=== PATIENT | male | born 1960 | race Caucasian/White ===

== ENCOUNTER 2017-07-29 13:45 | Emergency (ER) | payer MEDICARE ==
[~2017-07-29] VITALS: Ht 165.1 cm; Wt 60.0 kg
[2017-07-29] MEDS ORDERED: IPRAAER INH (14:28)
--- NOTE | 2017-07-29 14:28 | PD ---
HPI Chief Complaint: Medication Refill Request Time Seen by Provider: 14:11 Travel History International Travel<30 days: No Contact w/Intl Traveler<30days: No Traveled to known affect area: No History of Present Illness HPI 49-year-old male presents to emergency department requesting refill of his Combivent. States that he is from [place] and is having trouble taking this medication. Patient states that he is unable to afford his medication at this time. Patient also says he takes albuterol at home. He has no other complaints today. PFSH Past Medical History Respiratory: Yes Social History Tobacco Use: Yes Allergies-Medications Reported Meds & Prescriptions Reported Meds & Active Scripts Active Combivent Respimat Inh (Ipratropium-Albuterol Inh) 20-100 Snf/Act Aero 1 Puff INH QID Review of Systems Except as stated in HPI: all other systems reviewed are Neg Physical Exam Narrative GENERAL: Well-developed well-nourished in no apparent distress SKIN: Focused skin assessment warm/dry. HEAD: Atraumatic. Normocephalic. EYES: Pupils equal and round. No scleral icterus. No injection or drainage. ENT: No nasal bleeding or discharge. Mucous membranes pink and moist. NECK: Trachea midline. No JVD. NEUROLOGICAL: Awake and alert. No obvious cranial nerve deficits. Motor grossly within normal limits. Normal speech. PSYCHIATRIC: Appropriate mood and affect; insight and judgment normal. Data Data Orders Orders Ed Discharge Order (07/29/17 14:34) MDM Medical Decision Making Medical Screen Exam Complete: Yes Emergency Medical Condition: Yes Differential Diagnosis Medication refill versus COPD versus asthma Narrative Course 32-year-old male presents to emergency department complaining of cough cold symptoms for approximately 3 weeks. States that he has had a productive cough with green sputum, fever of 103-107 broken with Mucinex, sore throat. He developed low back pain for a one-week ago that is worse with coughing. Patient denies abdominal pain, chest pain, urinary symptoms. Vital signs stable Physical exam unremarkable During the interview patient stated that he was unable to afford his Combivent but still requests this prescription. Patient does have albuterol as well and will use this if he is unable to obtain as Combivent. Patient is in no apparent distress and only requests medication refill. Patient will be discharged home with Combivent. He understands and is follow-up with his primary care physician. Diagnosis Primary Impression: Medication refill Referrals: Primary Care Physician Additional Instructions: Follow-up with her primary care physician within 2-3 days. Continue albuterol treatments especially if you are Unable to obtain your Combivent refill. If her symptoms persist or worsen return to the emergency department Scripts Ipratropium-Albuterol Inh (Combivent Respimat Inh) 20-100 Snf/Act Aero 1 PUFF INH QID for Asthma Management, #1 INHALER 0 Refills Prov: Odessa Jones MD 07/29/17 Disposition: 01 DISCHARGE HOME Condition: Stable Joann Silva Jul 29, 2017 14:28
== END 2017-07-29 14:49 | disposition home or self-care (01) ==
LOC: NEPD 13:45
DX: Z76.0 Encounter for issue of repeat prescription (principal); R05 Cough; R50.9 Fever, unspecified; J02.9 Acute pharyngitis, unspecified; M54.5 Low back pain; Z72.0 Tobacco use
CPT/HCPCS: 99282